=== PATIENT | male | born 1950 | race Caucasian/White ===

== ENCOUNTER 2018-06-25 12:51 | Day surgery (SDC) | payer OTHER ==
[~2018-06-25] VITALS: Ht 172.7 cm; Wt 93.0 kg
[~2018-06-25 12:51] MED LIST: APRESOLINE25 MG PO; COREG6.25 M1 PO; DIOVAN160 MG PO; HUMALOG SC; LIPITOR40 MG PO; LO-DOSE ASPIRIN81 M2 PO; NORVASC5 MG PO; PAXIL30 MG PO; VITAMIN D3 PO
[2018-06-25 13:21] VITALS: BP 169/73
[2018-06-25 13:31] LABS: HEMATOCRIT 33.9 % (38.0-50.0); HEMOGLOBIN 11.3 G/DL (12.5-16.6); MCHC 33.3 G/DL (30.0-36.0); MCV 87.1 FL (86-99); PLATELET COUNT 124 K/uL (156-360); RBC DIS.WIDTH-SD 41.6 % (39-53); RED BLOOD COUNT 3.89 M/uL (4.00-5.50); WHITE BLOOD COUNT 5.7 K/uL (4.1-10.2)
[2018-06-25 13:42] LABS: CHLORIDE 110 mEq/L (99-109); POTASSIUM 4.5 mEq/L (3.7-5.4); SODIUM 138 mEq/L (136-147)
[2018-06-25 13:43] LABS: GLUCOSE 169 mg/dL (70-99)
[2018-06-25 13:47] LABS: CREATININE 4.3 mg/dL (0.6-1.3); GFR ESTIMATE (CALCULATED) 15 mL/min/ (58.99-99999)
[2018-06-25 13:48] LABS: UREA NITROGEN (BUN) 55 mg/dL (9-23)
[2018-06-25] MEDS ORDERED: NORCO 5/3251 TABLET PO (17:06)
[2018-06-25 17:50] VITALS: BP 173/72
[2018-06-25 18:30] VITALS: BP 194/79
== END 2018-06-25 18:30 | disposition home or self-care (01) ==
LOC: SDC 12:51 → EDSTATUS 15:26 → 2SOUTH 15:26 → SDC 15:27
PROVIDERS: Surgery
PROC: 0WHG43Z Insertion of Infusion Device into Peritoneal Cavity, Percutaneous Endoscopic Approach (ICD-10-PCS; principal; 2018-06-25)
DX: I12.9 Hypertensive chronic kidney disease with stage 1 through stage 4 chronic kidney disease, or unspecified chronic kidney disease (principal); E11.22 Type 2 diabetes mellitus with diabetic chronic kidney disease; N18.4 Chronic kidney disease, stage 4 (severe); Z86.73 Personal history of transient ischemic attack (TIA), and cerebral infarction without residual deficits; F41.1 Generalized anxiety disorder; E78.5 Hyperlipidemia, unspecified; F31.9 Bipolar disorder, unspecified; N25.81 Secondary hyperparathyroidism of renal origin; Z79.4 Long term (current) use of insulin; Z96.41 Presence of insulin pump (external) (internal)
CPT/HCPCS: 80048; 82948; 85027; C1750; J0330; J0690; J1100; J1200; J2250; J2405; J2710; J2765; J3010; J7643; S0020

== ENCOUNTER 2018-06-26 17:08 | Emergency (ER) | payer OTHER ==
[~2018-06-26] VITALS: Ht 172.7 cm; Wt 96.7 kg
[~2018-06-26 17:08] MED LIST changes: +NORCO 5/3251 TABLET PO
[2018-06-26 17:55] LABS: APPEARANCE SL.HAZY ((CLEAR)); BILIRUBIN NEGATIVE; BLOOD SMALL; COLOR YELLOW ((YELLOW)); GLUCOSE (STRIP) 150; KETONES 5; LEUKOCYTES NEGATIVE; NITRITE NEGATIVE; PROTEIN (STRIP) >=500; SPECIFIC GRAVITY 1.018 (1.000-1.030); UROBILINOGEN 0.2 MG/DL (0.2-1.0)
[2018-06-26 18:08] LABS: BACTERIA RARE /HPF; EPITHELIAL CELLS RARE /HPF; MUCUS TRACE /LPF; RED BLOOD CELLS 0-5 /HPF (0-5); UCUL ADDED? NO; WHITE BLOOD CELLS 0-5 /HPF (0-5)
[2018-06-26 18:56] VITALS: BP 162/69
== END 2018-06-26 18:56 | disposition home or self-care (01) ==
LOC: EME 17:08
PROVIDERS: Physician Assistant
PROC: 0T9B70Z Drainage of Bladder with Drainage Device, Via Natural or Artificial Opening (ICD-10-PCS; principal; 2018-06-26)
DX: R33.9 Retention of urine, unspecified (principal); Z98.890 Other specified postprocedural states; I12.0 Hypertensive chronic kidney disease with stage 5 chronic kidney disease or end stage renal disease; E11.22 Type 2 diabetes mellitus with diabetic chronic kidney disease; N18.6 End stage renal disease; Z99.2 Dependence on renal dialysis; Z79.82 Long term (current) use of aspirin; Z79.4 Long term (current) use of insulin
CPT/HCPCS: 81003; 99281; 99284